=== PATIENT | male | born 1985 | race Two or more races ===

== ENCOUNTER 2016-05-01 13:15 | Emergency (ER) | payer OTHER ==
[2016-05-01] MEDS ORDERED: ACETAMINOPHEN 325 MG TABLET ONE (14:42)
[2016-05-01 14:53] LABS: ABSOLUTE NEUTROPHIL COUNT 10.4 K/mm3 (1.8-7.7); BASO # 0.1 K/mm3 (0.0-0.2); BASO % 0.6 % (0.2-1.0); EOS # 0.2 (0.0-0.5); EOS % 1.6 % (0.9-2.9); HEMATOCRIT 30.1 % (32.0-52.0); HEMOGLOBIN 9.9 gm/l (14.0-18.0); IMM NEUT # 0.1 K/mm3 (0-0.2); IMM NEUT% 0.5 % (0-1); LYMPH # 1.6 (1.0-4.8); LYMPH % 12.2 % (15-45); MEAN CELL VOLUME 93.8 fl (80.0-94.0); MEAN CORPUSCULAR HEMOGLOBIN 30.8 pg (27.0-31.0); MEAN CORPUSCULAR HGB CONC 32.9 g/dl (33.0-37.0); MEAN PLATELET VOLUME 9.6 fl (7.4-10.4); MONO # 0.6 (0.0-0.8); MONO % 4.6 % (4-12); NEUT % 80.5 % (43-75); PLATELET COUNT 286 K/mm3 (130-400); RED CELL DISTRIBUTION WIDTH 13.9 % (11.5-14.5)
--- NOTE | 2016-05-01 14:57 | RAD ---
CHEST - 2 VIEWS COMPARISON: None. HISTORY: The patient on dialysis with fever for 2 days. FINDINGS: Views: Frontal and lateral chest Lungs: Diffuse airspace opacity in the right lower lobe. Heart and vessels: Normal Trachea and bronchi: Normal Mediastinum and shayna: Normal Costophrenic sulci: Normal Chest wall and bones: Normal. Upper abdomen: Normal. IMPRESSION: Evidence of pneumonia in the right lower lobe.
[2016-05-01 15:14] LABS: ALB/GLOB RATIO 1.4 (>1.0); ALBUMIN 3.9 gm/dL (3.5-5.7); CALCIUM 8.8 mg/dL (8.6-10.3)
[2016-05-01] MEDS ORDERED: LEVOFLOXACIN 750 MG/D5W 150 ML 150 ML IV ONE (15:26)
== END 2016-05-01 16:54 | disposition home or self-care (01) ==
LOC: ED 13:15
DX: J18.9 Pneumonia, unspecified organism (principal); N18.6 End stage renal disease; Z99.2 Dependence on renal dialysis
CPT/HCPCS: 83605; 83690; 85025; 87040; 80053; 71020; 99284 ×2; 96365; A9270; J1956